=== PATIENT | female | born 1945 | race Caucasian/White ===

== ENCOUNTER 2019-03-25 10:01 | Day surgery (SDC) | payer MEDICARE, MEDICAID ==
[2019-03-25] VITALS (12 sets, daily range): BP systolic 114–166; BP diastolic 58–82
[~2019-03-25] VITALS: Ht 160 cm; Wt 76.9 kg
[2019-03-25] MEDS ORDERED: nitroGLYCERIN 0.4mg SUBLingual tab SL PRN (10:20)
[2019-03-25] MEDS ORDERED: diphenhydrAMINE 25mg capsule PO PRN (10:20)
[2019-03-25] MEDS ORDERED: LORazepam 0.5 MG tablet PO PRN (10:20)
[2019-03-25] MEDS ORDERED: normal saline 1,000 ML IV SCH (10:20)
[2019-03-25 11:01] LABS: BASOPHILS % (AUTO) 0.8 % (0-1); EOSINOPHILS # (AUTO) 0.2 X10'3 (0-0.9); EOSINOPHILS % (AUTO) 4.2 % (0-6); HEMATOCRIT 37.2 % (35.0-45.0); HEMOGLOBIN 12.7 g/dl (12.0-16.0); LYMPHOCYTES # (AUTO) 1.2 X10'3 (1.1-4.8); LYMPHOCYTES % (AUTO) 20.9 % (21-51); MEAN CORPUSCULAR HEMOGLOBIN 29.9 PG (27.0-31.0); MEAN CORPUSCULAR HGB CONC 34.2 g/dL (33.0-36.5); MEAN CORPUSCULAR VOLUME 87.7 FL (78-98); MEAN PLATELET VOLUME 8.4 FL (7.4-10.4); MONOCYTES # (AUTO) 0.5 X10'3 (0-0.9); NEUTROPHILS # (AUTO) 3.7 X10'3 (1.8-7.7); NEUTROPHILS % (AUTO) 65.1 % (42-75); PLATELET COUNT 190 X10'3 (140-440); RED BLOOD COUNT 4.25 X10'6 (4.20-5.60); RED CELL DISTRIBUTION WIDTH 13.5 % (11.5-14.5); WHITE BLOOD COUNT 5.7 X10'3 (4.5-11.0)
[2019-03-25 11:14] LABS: ANION GAP 10 (8-16); BLOOD UREA NITROGEN 19 MG/DL (7-18); BUN/CREATININE RATIO 23.8 (6.6-38.0); CHLORIDE 103 MMOL/L (99-107); GLUCOSE 97 MG/DL (70-104); PARTIAL THROMBOPLASTIN TIME 30 SECONDS (22-32); POTASSIUM 3.9 MMOL/L (3.5-5.1); SODIUM 139 MMOL/L (135-145); TOTAL CARBON DIOXIDE 25.9 MMOL/L (24-32); eGFR 71 ML/MIN
[2019-03-25] MEDS ORDERED: heparin 1,000 UNITS/NS 500ml 500 ML ONE ×2 (11:59→12:00)
[2019-03-25] MEDS ORDERED: iohexol 350MG/ML 100ml bottle IV ONE (11:59)
[2019-03-25] MEDS ORDERED: LIDOcaine 1% (10mg/ml)w/preservative injection 20ml MDV ONE (11:59)
[2019-03-25] MEDS ORDERED: midazolam 2 mg/2 ml injection ONE (11:59)
[2019-03-25] MEDS ORDERED: fentaNYL/PF 50MCG/1 ML 2ML syringe ONE (11:59)
[2019-03-25] MEDS ORDERED: iohexol 350 MG/ML 50ML vial IV ONE ×2 (11:59→12:39)
[2019-03-25] MEDS ORDERED: ALPR-384 PO (12:03)
[2019-03-25] MEDS ORDERED: HYDR12.55 PO (12:03)
[2019-03-25] MEDS ORDERED: LISI-600 PO (12:03)
[2019-03-25] MEDS ORDERED: HYDR-3964 PO (12:03)
[2019-03-25] MEDS ORDERED: CARV25TA2 PO (12:03)
[2019-03-25] MEDS ORDERED: NITR0.4T51 SL (12:03)
[2019-03-25] MEDS ORDERED: ASPI-611 PO (12:03)
[2019-03-25] MEDS ORDERED: ATOR80TA PO (12:03)
[2019-03-25] MEDS ORDERED: nitroGLYCERIN-Tridil 50MG/D5W 250 ML IV ONE (12:28)
[2019-03-25] MEDS ORDERED: hydrALAZINE 20mg/ml inj. IV ONE (12:35)
[2019-03-26 09:50] LABS: ISTAT HGB ART 10.5 g/dl (12.0-16.0); ISTAT Hct ART 31 %PCV (35-48); ISTAT Hct MIX 30 %PCV (35-48); ISTAT O2 SATURATION ARTERIAL 97 % (95-98); ISTAT O2 SATURATION MIX VENOUS 82 % (60-80); ISTAT SOURCE ART; ISTAT SOURCE MIX
== END 2019-03-25 19:25 | disposition home or self-care (01) ==
LOC: SSTAY O 10:01
PROVIDERS: ATTEND Internal Medicine Cardiovascular Disease
DX: R06.09 Other forms of dyspnea (principal); I25.119 Atherosclerotic heart disease of native coronary artery with unspecified angina pectoris; I10 Essential (primary) hypertension; F41.1 Generalized anxiety disorder; E78.5 Hyperlipidemia, unspecified; J44.9 Chronic obstructive pulmonary disease, unspecified; Z95.1 Presence of aortocoronary bypass graft; Z79.899 Other long term (current) drug therapy; Z79.82 Long term (current) use of aspirin; Z87.891 Personal history of nicotine dependence; Z79.01 Long term (current) use of anticoagulants
CPT/HCPCS: 36415; 71046; 80048; 82803; 85014; 85025; 85610; 85730; 93461; 99152; 99153; C1769; J0360; J1644; J2001; J2250; J3010; J7030; Q0163; Q9967; A4620; A6258; C1760; J3490